=== PATIENT | female | born 1965 | race African-American/Black ===

== ENCOUNTER 2016-09-11 12:35 | Emergency (ER) | payer MEDICAID, OTHER ==
[~2016-09-11] VITALS: Ht 175.3 cm; Wt 88.9 kg
[~2016-09-11 12:35] MED LIST: ACETAMINOPHEN-1 EAC1 ORAL; ADULT WAL-100 MG/5 M ORAL; ALBUTEROL SULF8.5 GM INH; BACTRIM DS TAB1 EAC1 ORAL; BENTYL10 MG ORAL; CIPRO500 MG PO; HYDROCODON-ACE1 EA15 ORAL; IBUPROFEN600 MG ORAL; IBUPROFEN800 MG ORAL; MACROBID100 MG ORAL; METHADONE HCL10 MG PO; METRONIDAZOLE500 MG ORAL; NKM; NORCO 5-325 TA1 EACH ORAL; NORCO 5-325 TA1 EACH PO; PHENAZOPYRIDIN100 MG ORAL; PREDNISONE20 MG ORAL; ROBAXIN-750750 MG PO; SOMA250 MG PO; SOMA350 MG PO; TRAMADOL HCL50 MG ORAL
[2016-09-11] MEDS ORDERED: NKM (12:47)
[2016-09-11 13:26] LABS: APPEARANCE,URINE CLEAR; KETONES,URINE NEGATIVE (NEGATIVE); LEUKOCYTE ESTERASE ,URINE 1+ (NEGATIVE); NITRITE,URINE NEGATIVE (NEGATIVE); PH,URINE 8 (4.5-8.0); PROTEIN,URINE NEGATIVE (NEGATIVE); UROBILINOGEN,URINE NORMAL MG/DL (0.0-1.0)
[2016-09-11] MEDS ORDERED: Acetaminophen 500mg (ES) tab ORAL ONE (13:45)
[2016-09-11 14:07] LABS: BACTERIA,URINE FEW /HPF; SQUAMOUS EPITHELIAL CELL,UR FEW /LPF (NONE/OCC)
--- NOTE | 2016-09-11 14:08 | Emergency Room Report ---
History of Present Illness General Chief Complaint: General Complaint Present Illness HPI 51-year-old female sent to emergency Department complaining of frequency of urination, dysuria and bilateral flank pain exacerbated upon coughing. Denies hematuria, nausea, vomiting, fevers or chills. Patient also reports intermittent dry cough, denies productive sputum. She denies history of asthma or COPD. Patient states she does recent history of bronchitis. Pt states hx of CHF. denies dyspnea, SOB, or cough worse when lying down. Denies CP, Palpitations, LOC, AMS, dizziness, Changes in Vision, Sensation, paresthesias, or a sudden severe headache. Allergies: Coded Allergies: PENICILLINS (Verified Allergy, Severe, HIVES, 08/22/12) IBUPROFEN (Verified Allergy, Unknown, 08/24/16) TRAMADOL (Verified Allergy, Unknown, 08/24/16) Uncoded Allergies: PENICILLIN (Allergy, Unknown, 10/11/15) Patient History Past Medical History: see triage record Past Surgical History: none Pertinent Family History: none Now: No Reviewed Nursing Documentation: PMH: Agreed, PSxH: Agreed Nursing Documentation-PMH Hx Cardiac Problems: Yes - CHF, Tubal ligation, Hx Asthma: Yes Hx Cancer: No - UTERINE FIBROIDS Hx Gastrointestinal Problems: Yes - Cholecystecomy Hx Neurological Problems: Yes - Lock Jaw Review of Systems All Other Systems: negative except mentioned in HPI Physical Exam Vital Signs Date Time Temp Pulse Resp B/P Pulse Ox O2 Delivery O2 Flow Rate FiO2 09/11/16 12:44 97.5 80 20 129/79 99 Room Air Sp02 EP Interpretation: reviewed, normal General Appearance: no apparent distress, alert, GCS 15, non-toxic Head: normocephalic, atraumatic Eyes: bilateral eye PERRL, bilateral eye normal inspection ENT: hearing grossly normal, normal pharynx, no angioedema, normal voice, TMs + canals normal, uvula midline, moist mucus membranes Neck: full range of motion, no meningismus, no bony tend, supple/symm/no masses Respiratory: chest non-tender, lungs clear, normal breath sounds, no rhonchi, no respiratory distress, no retraction, no accessory muscle use, no wheezing, speaking full sentences Cardiovascular #1: regular rate, rhythm, no edema Gastrointestinal: normal bowel sounds, non tender, soft, no mass, no organomegaly, no guarding, no rebound Rectal: deferred Genitourinary: normal inspection, no CVA tenderness Musculoskeletal: back normal, gait/station normal, normal range of motion, non- tender, no calf tenderness Neurologic: alert, oriented x3, responsive, motor strength/tone normal, sensory intact, speech normal Psychiatric: judgement/insight normal, memory normal, mood/affect normal, no suicidal/homicidal ideation Skin: normal color, no rash, warm/dry, well hydrated Lymphatic: no adenopathy Medical Decision Making PA Attestation Dr. Johnson is my supervising Physician whom patient management has been discussed with. Diagnostic Impression: Primary Impression: Urinary tract infection Qualified Codes: N30.00 - Acute cystitis without hematuria ER Course Pt. presents to the ED c/o frequency x 2 days. , no fevers/ chills. Ddx considered but are not limited to UTi , Pyelo, STI, Stone, Cystitis Vital signs: are WNL, pt. is afebrile H&PE are most consistent with UTI ORDERS: - UA labs are attached : few bacteria, WBC's and leukocyte esterases indicating UTI ED INTERVENTIONS: - Tylenol PO DISCHARGE: At this time pt. is stable for d/c to home. Will provide printed patient care instructions, and any necessary prescriptions. Care plan and follow up instructions have been discussed with the patient prior to discharge. Labs Test 09/11/16 13:00 Urine Color Pale yellow Urine Appearance Clear Urine pH 8 (4.5-8.0) Urine Specific [place] 1.015 (1.005-1.035) Urine Protein Negative (NEGATIVE) Urine Glucose (UA) Negative (NEGATIVE) Urine Ketones Negative (NEGATIVE) Urine Occult Blood Negative (NEGATIVE) Urine Nitrite Negative (NEGATIVE) Urine Bilirubin Negative (NEGATIVE) Urine Urobilinogen Normal MG/DL (0.0-1.0) Urine Leukocyte Esterase 1+ (NEGATIVE) Urine RBC 2-4 /HPF (0 - 2) Urine WBC 5-10 /HPF (0 - 2) Urine Squamous Epithelial Cells Few /LPF (NONE/OCC) Urine Bacteria Few /HPF (NONE) Last Vital Signs Date Time Temp Pulse Resp B/P Pulse Ox O2 Delivery O2 Flow Rate FiO2 09/11/16 12:44 97.5 80 20 129/79 99 Room Air Disposition: HOME, SELF-CARE Condition: Stable Scripts Ranitidine Hcl* (ZANTAC*) 150 Mg Tablet 150 MG ORAL TWICE A DAY for 30 Days, #60 TAB Prov: Joana Luke 09/11/16 Meloxicam* (MELOXICAM*) 7.5 Mg Tablet 7.5 MG PO DAILY for 7 Days, #7 TAB Prov: Joana Luke 09/11/16 Nitrofurantoin Monohyd/M-Cryst* (MACROBID 100 MG*) 100 Mg Capsule 100 MG ORAL EVERY 12 HOURS for 7 Days, #14 CAP Prov: Joana Luke 09/11/16 Referrals: [facility],REFERRING (PCP) Patient Instructions: Urinary Tract Infection, [id number] Additional Instructions: Take medications as directed. Follow up with PCP in 3-5 days Return sooner to ED if new symptoms occur, or current symptoms become worse. Joana Luke Sep 11, 2016 14:08
[2016-09-11] MEDS ORDERED: ZANTAC150 MG ORAL (14:14)
[2016-09-11] MEDS ORDERED: NITROFURANTOIN100 M2 ORAL (14:14)
[2016-09-11] MEDS ORDERED: MELOXICAM7.5 MG PO (14:14)
[2016-09-11 14:35] VITALS: BP 108/65
== END 2016-09-11 14:37 | disposition home or self-care (01) ==
LOC: EMR 13:40
DX: N39.0 Urinary tract infection, site not specified (principal); J45.909 Unspecified asthma, uncomplicated; I50.9 Heart failure, unspecified
CPT/HCPCS: 81003; 99284

== ENCOUNTER → 2016-12-30 | Emergency (ER) | payer MEDICAID, OTHER ==
[~2016-12-30] VITALS: Ht 175.3 cm; Wt 90.7 kg
[~2016-12-30] MED LIST changes: +Ketorolac 30mg Inj IV ONE; +MELOXICAM7.5 MG PO; +NITROFURANTOIN100 M2 ORAL; +TYLENOL EXTRA500 MG ORAL; +ZANTAC150 MG ORAL
[2016-12-30 18:30] VITALS: BP 134/88
--- NOTE | 2016-12-30 18:34 | Emergency Room Report ---
History of Present Illness General Chief Complaint: Dizziness Source: Patient Present Illness HPI 51-year-old female presents emergency department complaining of dizziness, fatigue, and lightheadedness with getting up too fast. pt. reports that she has had heavy vaginal bleeding x 6 days, after having her period 1 week ago. pt. reports hx of fibroids. pt. states bleeding subsided yesterday, however today she has noticed intermittent dizziness. pt. describes feeling off-balance when arising too quickly. pt. denies feeling as thought the room is spinning. pt. denies nausea or vomiting. pt. denies recent head injury, WILSON, syncope, or palpitations. pt. reports that she has also been having right sided low back pain 6/10 in severity, that is exacerbated with certain movements, and is aching in nature and sometimes causes tingling sensation in the right leg. pt. denies dysuria, hematuria, frequency or urgency. pt. denies taking medication for her symptoms. Pt. also reports dry mouth. Denies CP, Palpitations, LOC, AMS , dizziness, Changes in Vision, Sensation, paresthesias, or a sudden severe headache. Allergies: Coded Allergies: PENICILLINS (Verified Allergy, Severe, HIVES, 08/22/12) IBUPROFEN (Verified Allergy, Unknown, 08/24/16) TRAMADOL (Verified Allergy, Unknown, 08/24/16) Uncoded Allergies: PENICILLIN (Allergy, Unknown, 10/11/15) Patient History Past Medical History: see triage record Past Surgical History: none Pertinent Family History: none Now: No Immunizations: UTD Reviewed Nursing Documentation: PMH: Agreed, PSxH: Agreed Nursing Documentation-PMH Past Medical History: No History, Except For Hx Cardiac Problems: Yes - CHF, Tubal ligation, Hx Asthma: Yes Hx Cancer: No - UTERINE FIBROIDS Hx Gastrointestinal Problems: Yes - Cholecystecomy Hx Neurological Problems: Yes - Lock Jaw Review of Systems All Other Systems: negative except mentioned in HPI Physical Exam Vital Signs Date Time Temp Pulse Resp B/P Pulse Ox O2 Delivery O2 Flow Rate FiO2 12/30/16 18:14 97.7 69 16 134/88 97 Room Air Sp02 EP Interpretation: reviewed, normal General Appearance: no apparent distress, alert, GCS 15, non-toxic Head: normocephalic, atraumatic Eyes: bilateral eye PERRL, bilateral eye normal inspection ENT: hearing grossly normal, normal pharynx, no angioedema, normal voice Neck: full range of motion, supple/symm/no masses Respiratory: lungs clear, normal breath sounds, speaking full sentences Cardiovascular #1: regular rate, rhythm, no edema Gastrointestinal: normal bowel sounds, non tender, soft, no guarding, no rebound Rectal: deferred Genitourinary: normal inspection, no CVA tenderness Musculoskeletal: back normal, gait/station normal, normal range of motion, no calf tenderness, tender - right paraspinal ttp, negative CVA tenderness, no midline ttp. forward flexion and sitting at 90* angle exacerbated pain into the posterior right leg. Neurologic: alert, oriented x3, responsive, motor strength/tone normal, sensory intact, cerebellar normal, normal gait, speech normal, no pronator Psychiatric: judgement/insight normal, memory normal, mood/affect normal, no suicidal/homicidal ideation Skin: normal color, no rash, warm/dry, well hydrated Medical Decision Making PA Attestation Dr. Walsh is my supervising Physician whom patient management has been discussed with. Diagnostic Impression: Primary Impression: Fibroid Qualified Codes: D25.9 - Leiomyoma of uterus, unspecified Additional Impressions: Dizziness Sciatica of right side ER Course Ddx considered but are not limited to Anemia, BPPV, hypovolemia, cardiac cause. Vital signs: are WNL, pt. is afebrile H&PE are most consistent with : fatigue, and intermittent dizziness following 6 days of heavy vaginal bleeding. will r/o anemia and check hydration status, cardiac pathology is of low suspicion as pt. has more plausible alternative dx, does not have cardiac RF's, and does not complain of cardiac symptoms or palpitations. HPI is not consistent with vertigo. ORDERS: -CBC: unremarkable no evidence of anemia -CMP: WNL, electrolytes ok -Orthostatic VS: negative for orthostatic hypotension ED INTERVENTIONS: -500cc NS -30mg Toradol IV for pain. DISCHARGE: At this time pt. is stable for d/c to home. Will provide printed patient care instructions, and any necessary prescriptions. Care plan and follow up instructions have been discussed with the patient prior to discharge. Labs Test 12/30/16 18:35 White Blood Count 6.0 K/UL (4.8-10.8) Red Blood Count 4.09 M/UL (4.20-5.40) Hemoglobin 13.3 G/DL (12.0-16.0) Hematocrit 37.8 % (37.0-47.0) Mean Corpuscular Volume 92 FL (80-99) Mean Corpuscular Hemoglobin 32.4 PG (27.0-31.0) Mean Corpuscular Hemoglobin Concent 35.1 G/DL (32.0-36.0) Red Cell Distribution Width 12.4 % (11.6-14.8) Platelet Count 153 K/UL (150-450) Mean Platelet Volume 7.7 FL (6.5-10.1) Neutrophils (%) (Auto) 62.4 % (45.0-75.0) Lymphocytes (%) (Auto) 27.7 % (20.0-45.0) Monocytes (%) (Auto) 6.1 % (1.0-10.0) Eosinophils (%) (Auto) 3.3 % (0.0-3.0) Basophils (%) (Auto) 0.5 % (0.0-2.0) Sodium Level 144 mEQ/L (135-145) Potassium Level 4.0 mEQ/L (3.4-4.9) Chloride Level 107 mEQ/L (98-107) Carbon Dioxide Level 29 mEQ/L (20-30) Anion Gap 8 (5-15) Blood Urea Nitrogen 14 mg/dL (7-23) Creatinine 0.8 mg/dL (0.5-0.9) Estimat Glomerular Filtration Rate > 60 mL/min (>60) Glucose Level 82 mg/dL (74-106) Calcium Level 8.7 mg/dL (8.6-10.2) Last Vital Signs Date Time Temp Pulse Resp B/P Pulse Ox O2 Delivery O2 Flow Rate FiO2 12/30/16 18:30 97.7 16 134/88 97 Room Air 12/30/16 18:14 69 Disposition: HOME, SELF-CARE Condition: Stable Scripts Acetaminophen* (TYLENOL EXTRA STRENGTH*) 500 Mg Tablet 500 MG ORAL Q6H, #20 TAB 0 Refills Prov: Joana Luke 12/30/16 Patient Instructions: Dizziness, Sciatica, [id number], Uterine Fibroids Additional Instructions: Take medications as directed. Follow up with PCP and OBGYN in 3-5 days Return sooner to ED if new symptoms occur, or current symptoms become worse. - Please note that this Emergency Department Report was dictated using [employer] developer mid level technology software, occasionally this can lead to erroneous entry secondary to interpretation by the dictation equipment. Joana Luke Dec 30, 2016 18:34
[2016-12-30 18:44] VITALS: BP_SYST 122; BP_SYST 128; BP_SYST 138; BP_DIAS 75; BP_DIAS 77; BP_DIAS 78
[2016-12-30 18:57] LABS: BASOPHILS % (AUTO) 0.5 % (0.0-2.0); EOSINOPHILS % (AUTO) 3.3 % (0.0-3.0); LYMPHOCYTES % (AUTO) 27.7 % (20.0-45.0); MEAN CORPUSCULAR HEMOGLOBIN 32.4 PG (27.0-31.0); MEAN CORPUSCULAR HGB CONC 35.1 G/DL (32.0-36.0); MEAN CORPUSCULAR VOLUME 92 FL (80-99); MEAN PLATELET VOLUME 7.7 FL (6.5-10.1); MONOCYTES % (AUTO) 6.1 % (1.0-10.0); NEUTROPHILS % (AUTO) 62.4 % (45.0-75.0); PLATELET COUNT 153 K/UL (150-450); RED BLOOD COUNT 4.09 M/UL (4.20-5.40); RED CELL DISTRIBUTION WIDTH 12.4 % (11.6-14.8)
[2016-12-30 19:18] LABS: ANION GAP 8 (5-15); CALCIUM 8.7 mg/dL (8.6-10.2); CARBON DIOXIDE 29 mEQ/L (20-30); CHLORIDE 107 mEQ/L (98-107); CREATININE 0.8 mg/dL (0.5-0.9); GLOMERULAR FILTRATION RATE > 60 mL/min (>60); HEMOLYSIS 4; SODIUM 144 mEQ/L (135-145)
[2016-12-30 19:39] VITALS: BP 126/72
[2016-12-30 19:40] VITALS: BP 128/78
== END | disposition home or self-care (01) ==
LOC: EMR 18:33
DX: D25.9 Leiomyoma of uterus, unspecified (principal); R42 Dizziness and giddiness; M54.31 Sciatica, right side; I50.9 Heart failure, unspecified; J45.909 Unspecified asthma, uncomplicated; Z88.0 Allergy status to penicillin; Z88.6 Allergy status to analgesic agent
CPT/HCPCS: 36415; 80048; 85025; 96360; 96374; 99284; J1885

== ENCOUNTER 2017-03-16 10:05 | Emergency (ER) | payer SELFPAY ==
[~2017-03-16] VITALS: Ht 172.7 cm; Wt 86.2 kg
[~2017-03-16 10:05] MED LIST changes: -Ketorolac 30mg Inj IV ONE
[2017-03-16 10:48] LABS: APPEARANCE,URINE CLEAR; BASOPHILS % (AUTO) 0.7 % (0.0-2.0); EOSINOPHILS % (AUTO) 1.9 % (0.0-3.0); KETONES,URINE NEGATIVE (NEGATIVE); LEUKOCYTE ESTERASE ,URINE 2+ (NEGATIVE); LYMPHOCYTES % (AUTO) 22.9 % (20.0-45.0); MEAN CORPUSCULAR HEMOGLOBIN 30.9 PG (27.0-31.0); MEAN CORPUSCULAR HGB CONC 32.9 G/DL (32.0-36.0); MEAN CORPUSCULAR VOLUME 94 FL (80-99); MEAN PLATELET VOLUME 8.9 FL (6.5-10.1); MONOCYTES % (AUTO) 5.9 % (1.0-10.0); NEUTROPHILS % (AUTO) 68.6 % (45.0-75.0); NITRITE,URINE NEGATIVE (NEGATIVE); PH,URINE 6.5 (4.5-8.0); PLATELET COUNT 183 K/UL (150-450); PROTEIN,URINE NEGATIVE (NEGATIVE); RED BLOOD COUNT 4.41 M/UL (4.20-5.40); UROBILINOGEN,URINE 1 MG/DL (0.0-1.0); WHITE BLOOD COUNT 6.3 K/UL (4.8-10.8)
[2017-03-16 10:58] LABS: BACTERIA,URINE FEW /HPF; MUCUS,URINE FEW /LPF (NONE/OCC); SQUAMOUS EPITHELIAL CELL,UR FEW /LPF (NONE/OCC); WBC,URINE 15-20 /HPF (0 - 2)
[2017-03-16 11:02] LABS: ALANINE AMINOTRANSFERASE 9 U/L (3-33); ALBUMIN/GLOBULIN RATIO 0.9 (1.0-2.7); ANION GAP 16 (5-15); ASPARTATE AMINO TRANSFERASE 11 U/L (5-40); CALCIUM 9.3 mg/dL (8.6-10.2); CARBON DIOXIDE 20 mEQ/L (20-30); CHLORIDE 104 mEQ/L (98-107); CREATININE 0.6 mg/dL (0.5-0.9); GLOMERULAR FILTRATION RATE > 60 mL/min (>60); HEMOLYSIS 4; LIPASE 20 U/L (< 60); POTASSIUM 3.8 mEQ/L (3.4-4.9); SODIUM 140 mEQ/L (135-145); TOTAL PROTEIN 7.3 g/dL (6.6-8.7)
[2017-03-16] MEDS ORDERED: Morphine Sulfate 4mg/ml Inj ONE (11:11)
[2017-03-16] MEDS ORDERED: Morphine Sulfate 4mg/ml Inj IVP ONE ×2 (11:15→12:15)
[2017-03-16 12:48] VITALS: BP 132/73
[2017-03-16] MEDS ORDERED: NORCO 5-325 TA1 EACH ORAL (13:18)
[2017-03-16] MEDS ORDERED: NITROFURANTOIN100 M2 ORAL (13:18)
[2017-03-16 13:28] VITALS: BP 132/73
--- NOTE | 2017-03-16 14:12 | Emergency Room Report ---
History of Present Illness General Chief Complaint: Abdominal Pain Source: Patient Present Illness HPI 51-year-old female presents to ED for evaluation. Patient states she's having lower abdominal pain for the last 2 days. Sharp. 8/. Nonradiating. Notes dysuria. Denies fevers or chills. Denies vaginal discharge or bleeding. Denies nausea or vomiting. No aggravating relieving factors. Denies any other associated symptom Allergies: Coded Allergies: PENICILLINS (Verified Allergy, Severe, HIVES, 08/22/12) IBUPROFEN (Verified Allergy, Unknown, 08/24/16) TRAMADOL (Verified Allergy, Unknown, 08/24/16) Uncoded Allergies: PENICILLIN (Allergy, Unknown, 10/11/15) Patient History Past Medical History: asthma Past Surgical History: nena, other - tubal ligation Pertinent Family History: none Social History: Denies: alcohol use, drug use, smoking Last Menstrual Period: 2 1/2 weeks Now: No Immunizations: UTD Reviewed Nursing Documentation: PMH: Agreed, PSxH: Agreed Nursing Documentation-PMH Hx Cardiac Problems: Yes - CHF, States during 12 years ago. Tubal ligation, Hx Asthma: Yes Hx Cancer: No - UTERINE FIBROIDS Hx Gastrointestinal Problems: Yes - Cholecystecomy Hx Neurological Problems: Yes - Lock Jaw Review of Systems All Other Systems: negative except mentioned in HPI Physical Exam Vital Signs Date Time Temp Pulse Resp B/P Pulse Ox O2 Delivery O2 Flow Rate FiO2 03/16/17 10:08 97.2 76 18 116/79 97 Room Air Sp02 EP Interpretation: reviewed, normal General Appearance: no apparent distress, alert, GCS 15, non-toxic Head: normocephalic, atraumatic Eyes: bilateral eye PERRL, bilateral eye normal inspection ENT: hearing grossly normal, normal pharynx, no angioedema, normal voice Neck: full range of motion, supple/symm/no masses Respiratory: chest non-tender, lungs clear, normal breath sounds, speaking full sentences Cardiovascular #1: regular rate, rhythm, no edema Cardiovascular #2: 2+ carotid (R), 2+ carotid (L), 2+ radial (R), 2+ radial (L) , 2+ dorsalis pedis (R), 2+ dorsalis pedis (L) Gastrointestinal: normal bowel sounds, soft, non-distended, no guarding, no rebound, tenderness - supraupubic Rectal: deferred Genitourinary: normal inspection, no CVA tenderness Musculoskeletal: back normal, gait/station normal, normal range of motion, non- tender Neurologic: alert, oriented x3, responsive, motor strength/tone normal, sensory intact, speech normal Psychiatric: judgement/insight normal, memory normal, mood/affect normal, no suicidal/homicidal ideation Reflexes: 3+ bicep (R), 3+ bicep (L), 3+ tricep (R), 3+ tricep (L), 3+ knee (R) , 3+ knee (L) Skin: normal color, no rash, warm/dry, well hydrated Lymphatic: no adenopathy Medical Decision Making Diagnostic Impression: Primary Impression: Urinary tract infection Qualified Codes: N39.0 - Urinary tract infection, site not specified Additional Impression: Abdominal pain Qualified Codes: R10.9 - Unspecified abdominal pain ER Course Hospital Course 51-year-old F presents to ED with dysuria, lower abdominal pain Differential diagnosis includes-appendicitis, cholecystitis, small bowel obstruction, gastritis, Clinical course Patient placed on stretcher. After initial history and physical I ordered labs , IV fluids, pain medications and CT scan Labs - no leukocytosis, electrolytes ok, LFTs normal, UA + bacteria CT scan shows no acute pathology Upon reassessment, patient states pain has improved. Given improvement in symptoms and lack of acute findings, I believe patient can be safely discharged to home. Patient agrees with plan I feel this is a highly complex case requiring extensive working including EKG/ Rhythm strip, Xray/CT/US, Blood/urine lab work, repeat exams while in ED, and administration of strong opiates/narcotics for pain control, admission to hospital or close patient follow up. Diagnosis - abdominal pain, UTI Stable and discharged to home with Rx Kathryn, Macrobid. Followup with PMD. Return to ED if symptoms recur or worsen Labs Test 03/16/17 10:31 White Blood Count 6.3 K/UL (4.8-10.8) Red Blood Count 4.41 M/UL (4.20-5.40) Hemoglobin 13.6 G/DL (12.0-16.0) Hematocrit 41.4 % (37.0-47.0) Mean Corpuscular Volume 94 FL (80-99) Mean Corpuscular Hemoglobin 30.9 PG (27.0-31.0) Mean Corpuscular Hemoglobin Concent 32.9 G/DL (32.0-36.0) Red Cell Distribution Width 12.0 % (11.6-14.8) Platelet Count 183 K/UL (150-450) Mean Platelet Volume 8.9 FL (6.5-10.1) Neutrophils (%) (Auto) 68.6 % (45.0-75.0) Lymphocytes (%) (Auto) 22.9 % (20.0-45.0) Monocytes (%) (Auto) 5.9 % (1.0-10.0) Eosinophils (%) (Auto) 1.9 % (0.0-3.0) Basophils (%) (Auto) 0.7 % (0.0-2.0) Urine Color Pale yellow Urine Appearance Clear Urine pH 6.5 (4.5-8.0) Urine Specific [place] 1.015 (1.005-1.035) Urine Protein Negative (NEGATIVE) Urine Glucose (UA) Negative (NEGATIVE) Urine Ketones Negative (NEGATIVE) Urine Occult Blood 1+ (NEGATIVE) Urine Nitrite Negative (NEGATIVE) Urine Bilirubin Negative (NEGATIVE) Urine Urobilinogen 1 MG/DL (0.0-1.0) Urine Leukocyte Esterase 2+ (NEGATIVE) Urine RBC 2-4 /HPF (0 - 2) Urine WBC 15-20 /HPF (0 - 2) Urine Squamous Epithelial Cells Few /LPF (NONE/OCC) Urine Bacteria Few /HPF (NONE) Urine Mucus Few /LPF (NONE/OCC) Urine HCG, Qualitative Negative Sodium Level 140 mEQ/L (135-145) Potassium Level 3.8 mEQ/L (3.4-4.9) Chloride Level 104 mEQ/L (98-107) Carbon Dioxide Level 20 mEQ/L (20-30) Anion Gap 16 (5-15) Blood Urea Nitrogen 16 mg/dL (7-23) Creatinine 0.6 mg/dL (0.5-0.9) Estimat Glomerular Filtration Rate > 60 mL/min (>60) Glucose Level 102 mg/dL (74-106) Calcium Level 9.3 mg/dL (8.6-10.2) Total Bilirubin < 0.2 mg/dL (0.0-1.2) Aspartate Amino Transf (AST/SGOT) 11 U/L (5-40) Alanine Aminotransferase (ALT/SGPT) 9 U/L (3-33) Alkaline Phosphatase 52 U/L (35-104) Total Protein 7.3 g/dL (6.6-8.7) Albumin 3.6 g/dL (3.5-5.2) Globulin 3.7 g/dL Albumin/Globulin Ratio 0.9 (1.0-2.7) Lipase 20 U/L (< 60) (1) Urinary tract infection CT/MRI/US Diagnostic Results CT/MRI/US Diagnostic Results : Imaging Test Ordered: CT A/P Impression Status post cholecystectomy. Right adnexal ovarian cyst. Last Vital Signs Date Time Temp Pulse Resp B/P Pulse Ox O2 Delivery O2 Flow Rate FiO2 03/16/17 13:28 97.3 70 16 132/73 97 Room Air Status: improved Disposition: HOME, SELF-CARE Condition: Stable Scripts Nitrofurantoin Monohyd/M-Cryst* (MACROBID 100 MG*) 100 Mg Capsule 100 MG ORAL EVERY 12 HOURS for 7 Days, CAP Prov: ANGELA HOLLEY M.D. 03/16/17 Hydrocodone Bit/Acetaminophen 5-325* (NORCO 5-325*) 1 Each Tablet 1 TAB ORAL Q6H Y for For Pain, #10 TAB 0 Refills Prov: ANGELA HOLLEY M.D. 03/16/17 Referrals: NOT CHOSEN N[facility]/,REFERRING (PCP) Patient Instructions: Dysuria ANGELA HOLLEY M.D. Mar 16, 2017 14:12
--- NOTE | 2017-03-17 10:30 | Diagnostic Imaging Report ---
Clinical Indication: Lower abdominal pain Technique: No oral contrast utilized, per emergency room physician request IV administration nonionic contrast. Venous phase spiral acquisition obtained through the abdomen and pelvis. Multiplanar reconstructions were generated. Total dose length product 985 mGycm. CTDIvol(s) 17 mGy. Dose reduction achieved using automated exposure control Comparison: 10/11/2015 Findings: The appendix is normal. There are a few colonic diverticula. No small bowel distention. No free or loculated intraperitoneal air or fluid is evident. The distal esophagus, stomach, duodenum are unremarkable. The gallbladder is surgically absent. There is ectasia of the extrahepatic and central intrahepatic bile ducts. There is questionably area of high attenuation in the downstream common bile duct, and a calculus is not excludable. The liver demonstrates multiple subcentimeter low-attenuation lesions which are too small to characterize, most likely benign simple cysts. No pancreatic mass. The spleen, adrenals are unremarkable. Dense material within the renal collecting systems and left proximal ureter presumably represents excreted contrast, although calculi are not completely excluded. Again demonstrated is a cyst in the right ovary, currently measuring 2.6 cm long axis dimension, probably not significantly changed from prior exam. Bilateral vaginal wall cysts are again demonstrated. The included lung bases are clear. The bones are unremarkable. Impression: Status post cholecystectomy. Mild ectasia of the extrahepatic and central intrahepatic bile ducts, slightly increased from 2 07/05/2016, may related to postcholecystectomy state, the downstream obstruction calculus not excludable. Correlate with liver function tests, is or MRCP if clinically indicated Colonic diverticulosis 2.6 cm right ovarian cyst, presumably a benign functional cyst, unchanged. Subcentimeter low-attenuation lesions, too small to characterize, most likely benign simple cysts or bile hamartomas. No further followup necessary. Other findings as noted, including bilateral vaginal wall cysts This agrees with the preliminary interpretation provided overnight by Dr. Russell The CT scanner at [facility] is accredited by the [employer] and the scans are performed using protocols designed to limit radiation exposure to as low as reasonably achievable to attain images of sufficient resolution adequate for diagnostic evaluation.
== END 2017-03-16 13:30 | disposition home or self-care (01) ==
LOC: EMR 10:40
DX: R10.9 Unspecified abdominal pain (principal); N39.0 Urinary tract infection, site not specified; Z90.49 Acquired absence of other specified parts of digestive tract; J45.909 Unspecified asthma, uncomplicated; Z98.51 Tubal ligation status; Z88.0 Allergy status to penicillin; Z88.6 Allergy status to analgesic agent
CPT/HCPCS: 36415; 74177; 80053; 81003; 81025; 83690; 85025; 87086; 96360; 96374; 96375; 99284; J2270; J7040; Q9967

== ENCOUNTER 2017-04-05 08:23 | Emergency (ER) | payer SELFPAY ==
[~2017-04-05] VITALS: Ht 172.7 cm; Wt 86.2 kg
[2017-04-05] MEDS ORDERED: Tylenol #3 tab (300mg/30mg) ORAL ONE (09:00)
[2017-04-05 09:37] VITALS: BP 115/75
--- NOTE | 2017-04-05 09:41 | Emergency Room Report ---
History of Present Illness General Chief Complaint: Vaginal Source: Patient Present Illness HPI 51-year-old female presents ED evaluation. Patient states the last few days she 's been having suprapubic pain dysuria. Believes she has a bladder infection. She was here last time with similar presentation. Pain is an 8/10, sharp, worse with urination. Denies any fevers or chills. Denies vaginal bleeding or discharge. Denies any flank pain. Patient is also complaining of pain to her left ankle and foot. States that she hit the bed railing this morning. Pain is an 8/10, throbbing, nonradiating. Patient notes pain but is able to walk. Denies any other injuries. No other aggravating or relieving factors. Denies any other associated symptoms Allergies: Coded Allergies: PENICILLINS (Verified Allergy, Severe, HIVES, 08/22/12) IBUPROFEN (Verified Allergy, Unknown, 08/24/16) TRAMADOL (Verified Allergy, Unknown, 08/24/16) Uncoded Allergies: PENICILLIN (Allergy, Unknown, 10/11/15) Patient History Past Medical History: asthma Past Surgical History: nena Pertinent Family History: none Social History: Denies: alcohol use, drug use, smoking Last Menstrual Period: 3 weeks Now: No Immunizations: UTD Reviewed Nursing Documentation: PMH: Agreed, PSxH: Agreed Nursing Documentation-PMH Past Medical History: No History, Except For Hx Cardiac Problems: Yes - CHF, States during 12 years ago. Tubal ligation, Hx Asthma: Yes Hx Cancer: No - UTERINE FIBROIDS Hx Gastrointestinal Problems: Yes - Cholecystecomy Hx Neurological Problems: Yes - Lock Jaw Review of Systems All Other Systems: negative except mentioned in HPI Physical Exam Vital Signs Date Time Temp Pulse Resp B/P Pulse Ox O2 Delivery O2 Flow Rate FiO2 04/05/17 08:33 97.3 75 18 115/75 98 Room Air Sp02 EP Interpretation: reviewed, normal General Appearance: no apparent distress, alert, GCS 15, non-toxic Head: normocephalic Eyes: bilateral eye PERRL, bilateral eye normal inspection ENT: normal ENT inspection Neck: normal inspection Respiratory: normal inspection Cardiovascular #1: normal inspection Gastrointestinal: normal bowel sounds, soft, non-distended, no guarding, no rebound, tenderness - suprapubic Rectal: deferred Genitourinary: no CVA tenderness, os closed, other - cervical discharge noted. + CMT. ese teacher present Musculoskeletal: tender - L ankle Neurologic: alert, oriented x3, responsive, motor strength/tone normal, sensory intact, speech normal Psychiatric: judgement/insight normal, memory normal, mood/affect normal, no suicidal/homicidal ideation Skin: normal inspection Lymphatic: normal inspection Medical Decision Making Diagnostic Impression: Primary Impression: Contusion of leg Qualified Codes: S80.12XA - Contusion of left lower leg, initial encounter Additional Impression: Cervicitis ER Course 51-year-old female presents ED c/o vaginal irritation, also c/o left leg pain s/ p hitting bed Differential - contusion, fx, UTI patient placed on stretcher. after intiial history and physical I ordered UA, xrays of leg. xrays of L ankle and L foot unremarkable for acute fx ua unremarkable pelvic exam performed, ese teacher present. there is some CMT Noted. some white discharge noted given rocephin/azithromycin noted diagnosis - contusion of leg, cervicitis stable and discharged to home with Rx Tylenol #3. apply ice, keep elevated. f/ u with PMD. return to ED if symptoms recur/worsen. Labs Test 04/05/17 08:40 Urine Color Pale yellow Urine Appearance Clear Urine pH 7 (4.5-8.0) Urine Specific [place] 1.010 (1.005-1.035) Urine Protein 1+ (NEGATIVE) Urine Glucose (UA) Negative (NEGATIVE) Urine Ketones Negative (NEGATIVE) Urine Occult Blood 2+ (NEGATIVE) Urine Nitrite Negative (NEGATIVE) Urine Bilirubin Negative (NEGATIVE) Urine Urobilinogen Normal MG/DL (0.0-1.0) Urine Leukocyte Esterase 3+ (NEGATIVE) Urine RBC 5-10 /HPF (0 - 2) Urine WBC 5-10 /HPF (0 - 2) Urine Squamous Epithelial Cells Few /LPF (NONE/OCC) Urine Bacteria None /HPF (NONE) Other X-Ray Diagnostic Results Other X-Ray Diagnostic Results #1: X-Ray ordered: L ankle # of Views/Limited Vs Complete: 3 View Indication: Pain EP Interpretation: Yes Interpretation: no dislocation, no soft tissue swelling, no fractures Impression: No acute disease Interpreting ER Provider: Electronically signed by Bin Gonzales MD Other X-Ray Diagnostic Results #2: X-Ray ordered: L foot # of Views/Limited Vs Complete: 3 View Indication: Pain EP Interpretation: Yes Interpretation: no dislocation, no soft tissue swelling, no fractures Impression: No acute disease Interpreting ER Provider: Electronically signed by Bin Gonzales MD Last Vital Signs Date Time Temp Pulse Resp B/P Pulse Ox O2 Delivery O2 Flow Rate FiO2 04/05/17 08:33 97.3 75 18 115/75 98 Room Air Status: improved Disposition: HOME, SELF-CARE Condition: Stable Scripts Acetaminophen With Codeine (T#3) (TYLENOL #3 TAB*) Y Tab 1 TAB ORAL Q8H Y for For Pain, #20 TAB Prov: BIN GONZALES M.D. 04/05/17 Referrals: NOT CHOSEN [facility]/,REFERRING (PCP) BIN GONZALES M.D. Apr 05, 2017 09:41
[2017-04-05 10:00] LABS: APPEARANCE,URINE CLEAR; KETONES,URINE NEGATIVE (NEGATIVE); LEUKOCYTE ESTERASE ,URINE 3+ (NEGATIVE); NITRITE,URINE NEGATIVE (NEGATIVE); PH,URINE 7 (4.5-8.0); PROTEIN,URINE 1+ (NEGATIVE); UROBILINOGEN,URINE NORMAL MG/DL (0.0-1.0)
[2017-04-05 10:06] LABS: SQUAMOUS EPITHELIAL CELL,UR FEW /LPF (NONE/OCC)
--- NOTE | 2017-04-05 10:34 | Diagnostic Imaging Report ---
Indication: PAIN Technique: 3 views left foot Comparison: None Findings: No acute fractures. No dislocations. Joint spaces are preserved. There is slight hammertoe deformity of the fourth and fifth digits Impression: Negative
--- NOTE | 2017-04-05 10:35 | Diagnostic Imaging Report ---
Indication: PAIN Technique: 3 views of the left ankle Comparison: none Findings: No acute fractures. No dislocations. Joint spaces are preserved. Impression: Negative
[2017-04-05] MEDS ORDERED: ACETAMINOPHEN-1 EAC1 ORAL (10:56)
[2017-04-05] MEDS ORDERED: Azithromycin 250mg tab ORAL ONE (11:00)
[2017-04-05] MEDS ORDERED: Lidocaine 1% MPF 10mg/ml 5ml ONE (11:02)
[2017-04-05 11:28] VITALS: BP 115/75
[2017-04-05 18:26] VITALS: BP 115/75
== END 2017-04-05 15:11 | disposition home or self-care (01) ==
LOC: EMR 08:52
DX: N72 Inflammatory disease of cervix uteri (principal); S80.12XA Contusion of left lower leg, initial encounter; Z98.51 Tubal ligation status; J45.909 Unspecified asthma, uncomplicated; Z90.49 Acquired absence of other specified parts of digestive tract; Z88.0 Allergy status to penicillin; Z88.6 Allergy status to analgesic agent; W22.03XA Walked into furniture, initial encounter; Y92.003 Bedroom of unspecified non-institutional (private) residence as the place of occurrence of the external cause
CPT/HCPCS: 73610; 73630; 81003; 96372; 99283; J0696

== ENCOUNTER 2017-04-20 09:39 | Emergency (ER) | payer MEDICAID ==
[~2017-04-20] VITALS: Ht 172.7 cm; Wt 87.5 kg
[2017-04-20 10:06] VITALS: BP 118/72
[2017-04-20] MEDS ORDERED: DOXYCYCLINE MO100 MG ORAL (10:30)
[2017-04-20 10:43] VITALS: BP 118/72
--- NOTE | 2017-04-20 13:41 | Emergency Room Report ---
History of Present Illness General Chief Complaint: Pelvic Pain Source: Patient Present Illness HPI 51-year-old female presents to ER for evaluation. Patient states that she went to another hospital recently and was diagnosed with PID. Was discharged with doxycycline and [place]. States that she lost her prescriptions. Patient states she had some cramping abdominal pain, 03/17, nonradiating. Denies any discharge. Denies any fevers or chills. Denies nausea or vomiting. No other aggravating or relieving factors. Denies any other associated symptoms Allergies: Coded Allergies: PENICILLINS (Verified Allergy, Severe, HIVES, 08/22/12) IBUPROFEN (Verified Allergy, Unknown, 08/24/16) TRAMADOL (Verified Allergy, Unknown, 08/24/16) Uncoded Allergies: PENICILLIN (Allergy, Unknown, 10/11/15) Patient History Past Medical History: asthma Past Surgical History: none, nena Pertinent Family History: none Social History: Denies: alcohol use, drug use, smoking Last Menstrual Period: 04/04/17 Now: No Immunizations: UTD Reviewed Nursing Documentation: PMH: Agreed, PSxH: Agreed Nursing Documentation-PMH Hx Cardiac Problems: Yes - CHF, States during 12 years ago. Tubal ligation, Hx Asthma: Yes Hx Cancer: No - UTERINE FIBROIDS Hx Gastrointestinal Problems: Yes - Cholecystecomy Hx Neurological Problems: Yes - Lock Jaw Review of Systems All Other Systems: negative except mentioned in HPI Physical Exam Vital Signs Date Time Temp Pulse Resp B/P Pulse Ox O2 Delivery O2 Flow Rate FiO2 04/20/17 09:48 73 16 116/75 100 Room Air 04/20/17 10:06 98.2 Sp02 EP Interpretation: reviewed, normal General Appearance: no apparent distress, alert, GCS 15, non-toxic Head: normocephalic, atraumatic Eyes: bilateral eye PERRL, bilateral eye normal inspection ENT: hearing grossly normal, normal pharynx, no angioedema, normal voice Neck: full range of motion, supple/symm/no masses Respiratory: chest non-tender, lungs clear, normal breath sounds, speaking full sentences Cardiovascular #1: regular rate, rhythm, no edema Cardiovascular #2: 2+ carotid (R), 2+ carotid (L), 2+ radial (R), 2+ radial (L) , 2+ dorsalis pedis (R), 2+ dorsalis pedis (L) Gastrointestinal: normal bowel sounds, non tender, soft, non-distended, no guarding, no rebound Rectal: deferred Genitourinary: normal inspection, no CVA tenderness Musculoskeletal: back normal, gait/station normal, normal range of motion, non- tender Neurologic: alert, oriented x3, responsive, motor strength/tone normal, sensory intact, speech normal Psychiatric: judgement/insight normal, memory normal, mood/affect normal, no suicidal/homicidal ideation Reflexes: 3+ bicep (R), 3+ bicep (L), 3+ tricep (R), 3+ tricep (L), 3+ knee (R) , 3+ knee (L) Skin: normal color, no rash, warm/dry, well hydrated Lymphatic: no adenopathy Medical Decision Making Diagnostic Impression: Primary Impression: Medication refill Additional Impression: Narcotic seeking behavior ER Course 51 yo F presents requesting refill of her medications - lost her Rx of Doxycycline and [place] hospital course: After initial history and physical, she provides discharge papers from [facility] which show prescription for [place] and doxycycline Patient has been here multiple times for pain-related complaints always requesting narcotic medications. Patient has multiple prescriptions seen on [facility]. I told patient I am uncomfortable providing her with medication at this time but I will refill her doxycycline Diagnosis-encounter for medication refill, narcotic seeking behavior Stable and discharged to home with prescription for doxycycline. Followup with PMD. Return to ED if symptoms recur or worsen Last Vital Signs Date Time Temp Pulse Resp B/P Pulse Ox O2 Delivery O2 Flow Rate FiO2 04/20/17 10:43 98.2 70 15 118/72 100 Room Air Status: improved Disposition: HOME, SELF-CARE Condition: Stable Scripts Doxycycline Monohydrate* (DOXYCYCLINE MONOHYDRATE*) 100 Mg Capsule 100 MG ORAL Q12H for 14 Days, CAP 0 Refills Prov: ANGELA HOLLEY M.D. 04/20/17 Patient Instructions: Pelvic Inflammatory Disease ANGELA HOLLEY M.D. Apr 20, 2017 13:41
== END 2017-04-20 10:44 | disposition home or self-care (01) ==
LOC: EMR 10:12
DX: Z76.0 Encounter for issue of repeat prescription (principal); R10.9 Unspecified abdominal pain; Z76.5 Malingerer [conscious simulation]; Z88.0 Allergy status to penicillin; Z88.6 Allergy status to analgesic agent; I50.9 Heart failure, unspecified; Z90.49 Acquired absence of other specified parts of digestive tract
CPT/HCPCS: 99283

== ENCOUNTER 2017-09-04 11:31 | Emergency (ER) | payer MEDICAID ==
[~2017-09-04] VITALS: Ht 175.3 cm; Wt 75.7 kg
[~2017-09-04 11:31] MED LIST changes: +CIPRO250 MG/51 PO; +DOXYCYCLINE MO100 MG ORAL
[2017-09-04] MEDS ORDERED: oxyCODONE HCL/Acetaminophen 5/325mg ORAL ONE (12:30)
[2017-09-04] MEDS ORDERED: Ketorolac 60mg Inj IM ONE (12:30)
--- NOTE | 2017-09-04 12:41 | Emergency Room Report ---
History of Present Illness General Chief Complaint: Pain Source: Patient, Medical Record Present Illness HPI 52-year-old female presents to the emergency department complaining of 10 out of 10 in severity bilateral ankle pain x3 days. Patient states that on the she was seen at [facility] ED and dx'd with bilateral ankle fractures and had bilateral posterior leg splint placed. Patient states that she believes the splints were place very poorly, and she has noticed significant swelling to the feet bilaterally and reports progressive numbness and tingling localized in both heels. denies skin color changes of the toes, or gross loss of sensation. She reports at the splints are very uncomfortable. She states that she is supposed follow up with desktop publishing specialist she's been unable to make an appointment so she came to the emergency department. She states that she was prescribed [place] 10mg which had not been doing anything. Patient denies change in character of her pain since onset of fractures she does report increase in swelling. Denies loss of gross motor movements of the extremities, incontinence of bowel or bladder. Allergies: Coded Allergies: PENICILLINS (Verified Allergy, Severe, HIVES, 08/22/12) IBUPROFEN (Verified Allergy, Unknown, 08/24/16) TRAMADOL (Verified Allergy, Unknown, 08/24/16) Uncoded Allergies: PENICILLIN (Allergy, Unknown, 10/11/15) Patient History Past Medical History: see triage record Past Surgical History: none Pertinent Family History: none Last Menstrual Period: 07/25/17 Now: No Reviewed Nursing Documentation: PMH: Agreed, PSxH: Agreed Nursing Documentation-PM Past Medical History: No History, Except For Hx Cardiac Problems: Yes - CHF, States during 12 years ago. Tubal ligation, Hx Asthma: Yes Hx Cancer: No - UTERINE FIBROIDS Hx Gastrointestinal Problems: Yes - Cholecystecomy Hx Neurological Problems: Yes - Lock Jaw Review of Systems All Other Systems: negative except mentioned in HPI Physical Exam Vital Signs Date Time Temp Pulse Resp B/P (MAP) Pulse Ox O2 Delivery O2 Flow Rate FiO2 09/04/17 11:41 97.3 86 18 132/85 96 Room Air Sp02 EP Interpretation: reviewed, normal General Appearance: no apparent distress, alert, GCS 15, non-toxic Head: normocephalic, atraumatic Eyes: bilateral eye normal inspection, bilateral eye PERRL ENT: hearing grossly normal, normal voice Neck: full range of motion Respiratory: chest non-tender, lungs clear, normal breath sounds, speaking full sentences Cardiovascular #1: regular rate, rhythm, normal capillary refill Musculoskeletal: back normal, normal range of motion, no calf tenderness, swelling - moderate swelling to the distal aspect and toes of feet bilaterally, currently in short leg posterior splints bilaterally with the elisa bandages loose and sliding. good capillary refill. pain does not appear to be out of proportion to exam, swelling primarily to the distal feet. , other - pt. ambulating on splints with a walker. Neurologic: alert, oriented x3, responsive, motor strength/tone normal, sensory intact, speech normal, grossly normal Skin: normal color, no rash, warm/dry, well hydrated Medical Decision Making PA Attestation Dr. Johnson is my supervising Physician whom patient management has been discussed with. Diagnostic Impression: Primary Impression: History of ankle fracture Additional Impression: Bilateral ankle pain Qualified Codes: M25.571 - Pain in right ankle and joints of right foot; M25.572 - Pain in left ankle and joints of left foot ER Course 52-year-old female presents to the emergency department complaining of 10 out of 10 in severity bilateral ankle pain x3 days. Patient states that on the she was seen at [facility] ED and dx'd with bilateral ankle fractures and had bilateral posterior leg splint placed. Patient states that she believes the splints were place very poorly, and she has noticed significant swelling to the feet bilaterally and reports progressive numbness and tingling localized in both heels. denies skin color changes of the toes, or gross loss of sensation. She reports at the splints are very uncomfortable. She states that she is supposed follow up with desktop publishing specialist she's been unable to make an appointment so she came to the emergency department. She states that she was prescribed [place] 10mg which had not been doing anything. Patient denies change in character of her pain since onset of fractures she does report increase in swelling. Denies loss of gross motor movements of the extremities, incontinence of bowel or bladder. Ddx considered but are not limited to Fracture, dislocation, contusion, Sprain/ Strain/Spasm, neurovascular compromise, compartment syndrome just to name a few. Vital signs: are WNL, pt. is afebrile H&PE are most consistent with musculoskeletal injury will perform imaging to r/ o fractures/dislocations. ORDERS: - X-ray's not warranted as pt. does not report new trauma. ED INTERVENTIONS: - Percocet PO -Toradol IM -Right short leg posterior Splint applied by medical supply technician. Pt. remains neurovascularly intact. -Left short leg posterior Splint applied by medical supply technician. Pt. remains neurovascularly intact. Pt Education: encouraged elevation of LE's as much as possible to reduce swelling, in addition to taking anti-inflammatories. dw pt. that she will still need desktop publishing specialist follow up. d/w pt. that although she has a walker to assist her ambulation, I recommend renting a wheel chair and staying off her feet as much as possible to avoid continued swelling. DISCHARGE: At this time pt. is stable for d/c to home. Will provide printed patient care instructions, and any necessary prescriptions. Care plan and follow up instructions have been discussed with the patient prior to discharge. Last Vital Signs Date Time Temp Pulse Resp B/P (MAP) Pulse Ox O2 Delivery O2 Flow Rate FiO2 09/04/17 11:41 97.3 86 18 132/85 96 Room Air Disposition: HOME, SELF-CARE Condition: Stable Scripts Naproxen* (NAPROXEN*) 500 Mg Tablet.dr 500 MG ORAL TWICE A DAY for 10 Days, #20 TAB Prov: Joana Luke 09/04/17 Patient Instructions: Ankle Fracture Additional Instructions: Take previously prescribed medications as directed. 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 --Please review list of primary care clinics, if you do not already have a primary care provider Return sooner to ED if new symptoms occur, or current symptoms become worse. - Please note that this Emergency Department Report was dictated using [employer] staff member technology software, occasionally this can lead to erroneous entry secondary to interpretation by the dictation equipment. Joana Luke Sep 04, 2017 12:41
[2017-09-04] MEDS ORDERED: NAPROXEN500 M1 ORAL (12:44)
[2017-09-04 12:54] VITALS: BP 144/71
[2017-09-04 14:05] VITALS: BP 137/86
== END 2017-09-04 14:27 | disposition home or self-care (01) ==
LOC: EMR 12:40
DX: M25.571 Pain in right ankle and joints of right foot (principal); M25.572 Pain in left ankle and joints of left foot; J45.909 Unspecified asthma, uncomplicated; Z98.51 Tubal ligation status; Z90.49 Acquired absence of other specified parts of digestive tract; Z88.0 Allergy status to penicillin; Z88.6 Allergy status to analgesic agent
CPT/HCPCS: 29515; 99284

== ENCOUNTER 2018-09-10 14:35 | Emergency (ER) | payer MEDICAID ==
[~2018-09-10] VITALS: Ht 172.7 cm; Wt 90.7 kg
[~2018-09-10 14:35] MED LIST changes: +NAPROXEN500 M1 ORAL
[2018-09-10 14:45] VITALS: BP 116/72
--- NOTE | 2018-09-10 14:47 | NUR ---
ED Nurse Note: Pt came in from home c/o lower back pain started a month ago when pt was diagnosed with UTI, was prescribed Bactrim but the pain didn't go away and has been having pain since then. Also c/o L sided chest discomfort x 2 week. Pt AA&ox4, gcs=15, skin warm and dry, resp even and unlabored, -n/v/d, ambulates w/ steady gait, will continue to monitor.
--- NOTE | 2018-09-10 15:12 | Emergency Room Report ---
History of Present Illness General Chief Complaint: Pain Source: Patient (Joana Luke) Present Illness HPI 53 YO Female presents to the ED c/o 05/18 in severity dysuria, x 4 weeks. 1 month ago dx with UTI and completed a course of bactrim with no relief of her symptoms. now with left sided flank/pain. denies hematuria, or urinary frequency. Pt. also c/o left sided chest discomfort as well. denies palpitations. N/V/F/C. pt. denies abdominal tenderness. Denies CP, Palpitations , LOC, AMS, dizziness, Changes in Vision, Sensation, paresthesias, or a sudden severe headache. Denies SOB or pain at rest. Pt. reports pain exacerbated when attempting to sit up from lying position such as getting out of bed. (Joana Luke) Allergies: Coded Allergies: PENICILLINS (Verified Allergy, Severe, HIVES, 08/22/12) KETOROLAC (Verified Allergy, Mild, 09/10/18) IBUPROFEN (Verified Allergy, Unknown, 08/24/16) TRAMADOL (Verified Allergy, Unknown, 08/24/16) Uncoded Allergies: PENICILLIN (Allergy, Unknown, 10/11/15) Patient History Past Medical History: see triage record Past Surgical History: none Pertinent Family History: none Now: No Reviewed Nursing Documentation: PMH: Agreed; PSxH: Agreed (Joana Luke) Nursing Documentation-PMH Past Medical History: No History, Except For Hx Cardiac Problems: Yes - CHF, States during 12 years ago. Tubal ligation, Hx Asthma: Yes Hx Cancer: No - UTERINE FIBROIDS Hx Gastrointestinal Problems: Yes - Cholecystecomy Hx Neurological Problems: Yes - Lock Jaw (Joana Luke) Review of Systems All Other Systems: negative except mentioned in HPI (Joana Luke) Physical Exam Vital Signs Date Time Temp Pulse Resp B/P (MAP) Pulse Ox O2 Delivery O2 Flow Rate FiO2 09/10/18 14:44 98.2 101 20 116/72 98 Room Air Sp02 EP Interpretation: reviewed, normal General Appearance: no apparent distress, alert, GCS 15, non-toxic Head: normocephalic, atraumatic Eyes: bilateral eye normal inspection, bilateral eye PERRL ENT: hearing grossly normal, normal voice Neck: full range of motion Respiratory: chest non-tender, lungs clear, normal breath sounds, no respiratory distress, no accessory muscle use, no wheezing, speaking full sentences Cardiovascular #1: regular rate, rhythm, no edema, normal capillary refill Gastrointestinal: normal bowel sounds, non tender, soft Rectal: deferred Genitourinary: normal inspection, CVA tenderness (L) Musculoskeletal: back normal, gait/station normal, normal range of motion, non- tender Neurologic: alert, oriented x3, responsive, motor strength/tone normal, sensory intact, speech normal, grossly normal Psychiatric: judgement/insight normal Skin: normal color, no rash, warm/dry, well hydrated Lymphatic: no adenopathy (Joana Luke) Medical Decision Making PA Attestation Dr. Johnson is my supervising Physician whom patient management has been discussed with. (Joana Luke) Diagnostic Impression: Primary Impression: UTI (urinary tract infection) Qualified Codes: N30.01 - Acute cystitis with hematuria ER Course 53 YO Female presents to the ED c/o 05/18 in severity dysuria, x 4 weeks. 1 month ago dx with UTI and completed a course of bactrim with no relief of her symptoms. now with left sided flank/pain. denies hematuria, or urinary frequency. Pt. also c/o left sided chest discomfort as well. denies palpitations. N/V/F/C. pt. denies abdominal tenderness. Denies CP, Palpitations , LOC, AMS, dizziness, Changes in Vision, Sensation, paresthesias, or a sudden severe headache. Denies SOB or pain at rest. Pt. reports pain exacerbated when attempting to sit up from lying position such as getting out of bed. Ddx considered but are not limited to UTi , Pyelo, STI, Stone, Cystitis Vital signs: are WNL, pt. is afebrile H&PE are most consistent with UTI ORDERS: - UA labs are attached - Blood present, elevated WBC's and leukocytes. -Troponin: WNL ED INTERVENTIONS: -Morphine IV -1 Liter NS -Rocephin IV DISCHARGE: At this time pt. is stable for d/c to home. Will provide printed patient care instructions, and any necessary prescriptions. Care plan and follow up instructions have been discussed with the patient prior to discharge. Labs Test 09/10/18 15:18 White Blood Count 7.9 K/UL (4.8-10.8) Red Blood Count 4.31 M/UL (4.20-5.40) Hemoglobin 12.8 G/DL (12.0-16.0) Hematocrit 38.9 % (37.0-47.0) Mean Corpuscular Volume 90 FL (80-99) Mean Corpuscular Hemoglobin 29.8 PG (27.0-31.0) Mean Corpuscular Hemoglobin Concent 33.0 G/DL (32.0-36.0) Red Cell Distribution Width 12.3 % (11.6-14.8) Platelet Count 195 K/UL (150-450) Mean Platelet Volume 7.2 FL (6.5-10.1) Neutrophils (%) (Auto) 68.2 % (45.0-75.0) Lymphocytes (%) (Auto) 24.9 % (20.0-45.0) Monocytes (%) (Auto) 5.6 % (1.0-10.0) Eosinophils (%) (Auto) 0.8 % (0.0-3.0) Basophils (%) (Auto) 0.6 % (0.0-2.0) Urine Color Pale yellow Urine Appearance Clear Urine pH 6 (4.5-8.0) Urine Specific [place] 1.020 (1.005-1.035) Urine Protein Negative (NEGATIVE) Urine Glucose (UA) Negative (NEGATIVE) Urine Ketones Negative (NEGATIVE) Urine Blood 3+ (NEGATIVE) Urine Nitrite Negative (NEGATIVE) Urine Bilirubin Negative (NEGATIVE) Urine Urobilinogen Normal MG/DL (0.0-1.0) Urine Leukocyte Esterase 2+ (NEGATIVE) Urine RBC 2-4 /HPF (0 - 2) Urine WBC 5-10 /HPF (0 - 2) Urine Squamous Epithelial Cells Few /LPF (NONE/OCC) Urine Bacteria Few /HPF (NONE) Sodium Level 141 MMOL/L (136-145) Potassium Level 3.2 MMOL/L (3.5-5.1) Chloride Level 109 MMOL/L (98-107) Carbon Dioxide Level 22 MMOL/L (21-32) Anion Gap 10 mmol/L (5-15) Blood Urea Nitrogen 17 mg/dL (7-18) Creatinine 0.9 MG/DL (0.55-1.30) Estimat Glomerular Filtration Rate > 60 mL/min (>60) Glucose Level 105 MG/DL (74-106) Calcium Level 8.9 MG/DL (8.5-10.1) Total Bilirubin 0.2 MG/DL (0.2-1.0) Aspartate Amino Transf (AST/SGOT) 9 U/L (15-37) Alanine Aminotransferase (ALT/SGPT) 19 U/L (12-78) Alkaline Phosphatase 58 U/L (46-116) Total Creatine Kinase 53 U/L (26-308) Troponin I 0.003 ng/mL (0.000-0.056) Total Protein 7.7 G/DL (6.4-8.2) Albumin 3.4 G/DL (3.4-5.0) Globulin 4.3 g/dL Albumin/Globulin Ratio 0.8 (1.0-2.7) (oJana Luke) EKG Diagnostic Results EP Interpretation: Dr. Johnson Rate: normal - 85 BPM Rhythm: NSR ST Segments: no acute changes ASA given to the pt in ED: No PA Scribe Text This Interpretation was scribed by JAM Luke. (Joana Luke) Chest X-Ray Diagnostic Results Chest X-Ray Diagnostic Results : Chest X-Ray Ordered: Yes # of Views/Limited/Complete: 1 View Indication: Chest Pain EP Interpretation: Yes PA Xray: Interpretation reviewed, by supervising MD, and agrees with findings. Interpretation: no consolidation, no effusion, no pneumothorax, no acute cardiopulmonary disease Impression: No acute disease Electronically Signed by: Joana Luke PA-C (Joana Luke) Chest X-Ray Diagnostic Results : Electronically Signed by: Nash A documentation of Xray reviewed by me and is accurate, Teofilo Johnson MD (Teofilo Johnson MD) Last Vital Signs Date Time Temp Pulse Resp B/P (MAP) Pulse Ox O2 Delivery O2 Flow Rate FiO2 09/10/18 14:44 98.2 101 20 116/72 98 Room Air (Joana Luke) Disposition: HOME, SELF-CARE Condition: Stable Scripts Cephalexin* (KEFLEX*) 500 Mg Capsule 500 MG ORAL EVERY 12 HOURS for 7 Days, #14 CAP 0 Refills Prov: Joana Luke 09/10/18 Acetaminophen With Codeine (T#3) (TYLENOL #3 TAB*) Y Tab 1 TAB ORAL Q8HR PRN for For Pain, #5 TAB Prov: Joana Luke 09/10/18 Patient Instructions: Urinary Tract Infection, [id number] Additional Instructions: Take medications as directed. Follow up with a Primary Care Provider in 3-5 days, even if your symptoms have resolved. UROLOGY REFERRAL NEEDED IF SYMPTOMS RETURN. Return sooner to ED if new symptoms occur, or current symptoms become worse. Do not drink alcohol, drive, or operate heavy machinery while taking Tylenol # 3 as this may cause drowsiness. - Please note that this Emergency Department Report was dictated using [employer] dispatcher technology software, occasionally this can lead to erroneous entry secondary to interpretation by the dictation equipment. Joana Luke Sep 10, 2018 15:11 Teofilo Johnson MD Sep 11, 2018 05:57
[2018-09-10 15:38] LABS: BASOPHILS % (AUTO) 0.6 % (0.0-2.0); EOSINOPHILS % (AUTO) 0.8 % (0.0-3.0); HEMATOCRIT 38.9 % (37.0-47.0); HEMOGLOBIN 12.8 G/DL (12.0-16.0); LYMPHOCYTES % (AUTO) 24.9 % (20.0-45.0); MEAN CORPUSCULAR VOLUME 90 FL (80-99); MONOCYTES % (AUTO) 5.6 % (1.0-10.0); NEUTROPHILS % (AUTO) 68.2 % (45.0-75.0); PLATELET COUNT 195 K/UL (150-450); RED BLOOD COUNT 4.31 M/UL (4.20-5.40); RED CELL DISTRIBUTION WIDTH 12.3 % (11.6-14.8); WHITE BLOOD COUNT 7.9 K/UL (4.8-10.8)
[2018-09-10 15:42] LABS: APPEARANCE,URINE CLEAR; BILIRUBIN, URINE NEGATIVE (NEGATIVE); COLOR,URINE PALE YELLOW; GLUCOSE, URINE (UA) NEGATIVE (NEGATIVE); KETONES,URINE NEGATIVE (NEGATIVE); LEUKOCYTE ESTERASE ,URINE 2+ (NEGATIVE); NITRITE,URINE NEGATIVE (NEGATIVE); PH,URINE 6 (4.5-8.0); PROTEIN,URINE NEGATIVE (NEGATIVE); UROBILINOGEN,URINE NORMAL MG/DL (0.0-1.0)
[2018-09-10 15:45] VITALS: BP 113/72
[2018-09-10 16:02] LABS: ANION GAP 10 mmol/L (5-15); BLOOD UREA NITROGEN 17 mg/dL (7-18); CALCIUM 8.9 MG/DL (8.5-10.1); CARBON DIOXIDE 22 MMOL/L (21-32); CHLORIDE 109 MMOL/L (98-107); CREATININE 0.9 MG/DL (0.55-1.30); POTASSIUM 3.2 MMOL/L (3.5-5.1); SODIUM 141 MMOL/L (136-145)
[2018-09-10 16:07] LABS: ALANINE AMINOTRANSFERASE 19 U/L (12-78); ALBUMIN 3.4 G/DL (3.4-5.0); ALBUMIN/GLOBULIN RATIO 0.8 (1.0-2.7); ALKALINE PHOSPHATASE 58 U/L (46-116); ASPARTATE AMINO TRANSFERASE 9 U/L (15-37); BILIRUBIN,TOTAL 0.2 MG/DL (0.2-1.0); CREATINE KINASE 53 U/L (26-308)
[2018-09-10 16:45] VITALS: BP 114/72
--- NOTE | 2018-09-10 17:14 | NUR ---
ED Nurse Note: Pa notified regarding pt's lab K 3.2 and pain.
[2018-09-10] MEDS ORDERED: Morphine Sulfate 4mg/ml Inj (IV/IM USE ONLY) IVP ONE (17:45)
[2018-09-10] MEDS ORDERED: cefTRIAXone 1 GM in NS 55 ML IVPB ONE (18:15)
[2018-09-10] MEDS ORDERED: CEPHALEXIN500 MG ORAL (19:08)
[2018-09-10] MEDS ORDERED: ACETAMINOPHEN-1 EAC1 ORAL (19:08)
[2018-09-10 19:13] VITALS: BP 109/98
--- NOTE | 2018-09-10 19:13 | NUR ---
ED Nurse Note: Pt reports pain is better with medication, Pt discharge instruction provided w/ prescription, id band removed, pt education done via discussion and handout, pt verbalized understanding and agrees with plan, pt advised to follow up with pcp regarding pt's condition, pt advised to return to ed if s/s worsen or new s/s develop.
--- NOTE | 2018-09-12 15:48 | Diagnostic Imaging Report ---
Indication: Abdominal pain Technique: Continuous helical transaxial imaging of the abdomen and pelvis was obtained from the lung bases to the pubic symphysis. No intravenous contrast was administered. Coronal 2-D reformats were also obtained. Automatic Exposure Control was utilized. Total Dose length Product (DLP): [address] Dose Index Volume (CTDIvol): 17.25 mGy Comparison: none Findings: Lung bases are clear. Tiny hypodensity in the liver noted. Cholecystectomy clips demonstrated. No hydronephrosis or renal stones identified. Minimal calcification of aorta demonstrated. Appendix is normal. There is a right ovarian cyst 2.5 cm noted. Few diverticula demonstrated in the colon. No evidence of diverticulitis. No free air or free fluid identified. IMPRESSION: No acute findings. Right adnexal cyst probably ovarian. Multiple incidental findings as above [facility] has communicated the preliminary results to the Emergency Department. Their findings are largely concordant with this report. The CT scanner at [facility] is accredited by the [employer] and the scans are performed using dose optimization techniques as appropriate to a performed exam including Automatic Exposure control.
--- NOTE | 2018-09-12 15:49 | Diagnostic Imaging Report ---
Indication: Chest pain Comparison: 08/24/2016 A single view chest radiograph was obtained. Findings: Cardiomediastinal appearance is within normal limits for age. The lungs are clear. Pulmonary vascularity is appropriate. The diaphragmatic contour is smooth and costophrenic angles are sharp. No pleural effusions are identified. The bones are unremarkable. Impression: No acute findings
== END 2018-09-10 19:13 | disposition home or self-care (01) ==
LOC: EMR 15:48
DX: N30.01 Acute cystitis with hematuria (principal); J45.909 Unspecified asthma, uncomplicated; Z88.0 Allergy status to penicillin; Z88.6 Allergy status to analgesic agent; Z90.49 Acquired absence of other specified parts of digestive tract
CPT/HCPCS: 36415; 71045; 74176; 80053; 81003; 82550; 84484; 85025; 93005; 96361; 96365; 96375; 99284; J0696; J2270; J8499

== ENCOUNTER 2019-04-01 13:48 | Emergency (ER) | payer MEDICAID ==
[~2019-04-01] VITALS: Ht 172.7 cm; Wt 97.5 kg
[~2019-04-01 13:48] MED LIST changes: +CEPHALEXIN500 MG ORAL
--- NOTE | 2019-04-01 14:09 | Emergency Room Report ---
History of Present Illness General Chief Complaint: Skin Rash/Abscess Source: Patient Present Illness HPI 53-year-old female with no significant past medical history here complaining of pruritic rash on her ankles and arms. Patient reports that she was outside and noticed multiple insect bites paretic with minimal pain upon scratching. Denies fever and chills, anaphylaxis, shortness of breath, chest pain, palpitation, abdominal pain nausea vomiting. Denies recent travel. Denies any pus drainage from the lesions. Patient reports that she has some leftover antibiotics from her UTI diagnosis recently and does not recall the name however continue taking them for her rash. Denies any pain over the lesions at this time. Allergies: Coded Allergies: PENICILLINS (Verified Allergy, Severe, HIVES, 08/22/12) KETOROLAC (Verified Allergy, Mild, 09/10/18) IBUPROFEN (Verified Allergy, Unknown, 08/24/16) TRAMADOL (Verified Allergy, Unknown, 08/24/16) Uncoded Allergies: PENICILLIN (Allergy, Unknown, 10/11/15) Patient History Past Medical History: see triage record Past Surgical History: unable to obtain Pertinent Family History: none Last Menstrual Period: menopause Now: No Immunizations: UTD Reviewed Nursing Documentation: PMH: Agreed; PSxH: Agreed Nursing Documentation-PMH Past Medical History: No History, Except For Hx Cardiac Problems: Yes - CHF, States during 12 years ago. Tubal ligation, Hx Asthma: Yes Hx Cancer: No - UTERINE FIBROIDS Hx Gastrointestinal Problems: Yes - Cholecystecomy Hx Neurological Problems: Yes - Lock Jaw Review of Systems All Other Systems: negative except mentioned in HPI Physical Exam Vital Signs Date Time Temp Pulse Resp B/P (MAP) Pulse Ox O2 Delivery O2 Flow Rate FiO2 04/01/19 13:52 97.5 87 18 122/87 (99) 99 Room Air Sp02 EP Interpretation: reviewed, normal General Appearance: normal inspection, well appearing, no apparent distress, alert, GCS 15 Head: normocephalic, atraumatic Eyes: bilateral eye normal inspection, bilateral eye PERRL ENT: normal ENT inspection, hearing grossly normal, normal pharynx, no angioedema Neck: normal inspection, full range of motion, supple, thyroid normal, no meningismus Respiratory: normal inspection, chest non-tender, lungs clear, no rhonchi, no retraction, no wheezing Cardiovascular #1: normal inspection, normal peripheral pulses, regular rate, rhythm, no edema, no murmur Cardiovascular #2: 2+ radial (R), 2+ radial (L) Gastrointestinal: normal inspection, soft, no mass Rectal: deferred Genitourinary: no CVA tenderness Musculoskeletal: normal inspection, back normal, digits/nails normal, gait/ station normal Neurologic: normal inspection, alert, oriented x3 Psychiatric: normal inspection, judgement/insight normal, memory normal Skin: other - Multiple noninfected non-cellulitic insect bites on both ankles and arms Lymphatic: normal inspection, no adenopathy Medical Decision Making PA Attestation All my diagnosis and treatment plans were reviewed ad discussed with my supervising physician Dr. Lehman Diagnostic Impression: Primary Impression: Insect bite ER Course 53-year-old female with no significant past medical history here complaining of pruritic rash on her ankles and arms. Patient reports that she was outside and noticed multiple insect bites paretic with minimal pain upon scratching. Denies fever and chills, anaphylaxis, shortness of breath, chest pain, palpitation, abdominal pain nausea vomiting. Denies recent travel. Denies any pus drainage from the lesions. Patient reports that she has some leftover antibiotics from her UTI diagnosis recently and does not recall the name however continue taking them for her rash. Denies any pain over the lesions at this time. Ddx considered but are not limited to: Eczema, scabies, lice, noninfected insect bite, cellulitis Vital signs: are WNL, pt. is afebrile H&PE are most consistent with: Noninfected insect bite ORDERS: Prednisone, hydrocortisone cream ED INTERVENTIONS: None required at this time. DISCHARGE: At this time pt. is stable for d/c to home. Will provide printed patient care instructions, and any necessary prescriptions. Care plan and follow up instructions have been discussed with the patient prior to discharge. No antibiotics needed follow-up with her primary care provider if fever and chills and worsening symptoms return to the emergency room avoid scratching the affected area as it may cause infection Last Vital Signs Date Time Temp Pulse Resp B/P (MAP) Pulse Ox O2 Delivery O2 Flow Rate FiO2 04/01/19 13:52 97.5 87 18 122/87 (99) 99 Room Air Disposition: HOME, SELF-CARE Condition: Stable Scripts Hydrocortisone/Aloe Vera 1%* (HYDROCORTISONE-ALOE 1% CREAM*) Y Cr 1 APPLIC TOPIC Q6H PRN for Itching, #30 GM Prov: Raj Moreira 04/01/19 Prednisone* (PREDNISONE*) 10 Mg Tablet 10 MG ORAL BID for 5 Days, #10 TAB 0 Refills Prov: Raj Moreira 04/01/19 Patient Instructions: Insect Bite, [id number] Additional Instructions: Avoid taking hot showers take medication as directed follow-up with your primary care provider at this time your insect bites are not infected avoid scratching to prevent further infection. Raj Moreira Apr 01, 2019 14:09
[2019-04-01] MEDS ORDERED: HYDROCORTISONE-30 GM TOPIC (14:10)
[2019-04-01] MEDS ORDERED: PREDNISONE10 MG ORAL (14:10)
--- NOTE | 2019-04-01 14:10 | NUR ---
ED Nurse Note:pt with skin rash unk cause. no other s/s
[2019-04-01 14:21] VITALS: BP 122/87
--- NOTE | 2019-04-01 14:21 | NUR ---
ER DISCHARGE NOTE: Patient is cleared to be discharged per ERMD, pt is aox4, on room air, with stable vital signs. pt was given dc and prescription instructions, pt was able to verbalize understanding, pt id band removed without complications. pt is able to ambulate with steady gait. pt took all belongings.
== END 2019-04-01 14:25 | disposition home or self-care (01) ==
LOC: EMR 14:10
DX: S90.562A Insect bite (nonvenomous), left ankle, initial encounter (principal); S90.561A Insect bite (nonvenomous), right ankle, initial encounter; S40.862A Insect bite (nonvenomous) of left upper arm, initial encounter; S40.861A Insect bite (nonvenomous) of right upper arm, initial encounter; W57.XXXA Bitten or stung by nonvenomous insect and other nonvenomous arthropods, initial encounter; Y92.9 Unspecified place or not applicable; J45.909 Unspecified asthma, uncomplicated; I50.9 Heart failure, unspecified; Z90.49 Acquired absence of other specified parts of digestive tract; Z88.0 Allergy status to penicillin; Z88.6 Allergy status to analgesic agent; Z88.5 Allergy status to narcotic agent
CPT/HCPCS: 99282

== ENCOUNTER 2019-04-11 10:25 | Emergency (ER) | payer MEDICAID ==
[~2019-04-11] VITALS: Ht 172.7 cm; Wt 97.5 kg
[~2019-04-11 10:25] MED LIST changes: +HYDROCORTISONE-30 GM TOPIC; +PREDNISONE10 MG ORAL
--- NOTE | 2019-04-11 10:29 | NUR ---
ED Nurse Note: pt not present in the waiting room when called
[2019-04-11 10:45] VITALS: BP 136/71
--- NOTE | 2019-04-11 10:46 | NUR ---
ED Nurse Note: Patient walked in to ER accompanied by family member due to abdominal pain and mild vaginal spotting. Patient stated she has having difficulty urinating. Has history of fibrod cyst that was diagnosed last Aug 2018. Alert and oriented x 4, verbally responsive. Breathing even and unlabored. No signs of respiratory distress noted.
--- NOTE | 2019-04-11 10:57 | Emergency Room Report ---
History of Present Illness General Chief Complaint: Abdominal Pain Source: Patient Present Illness HPI 53 year old female history of fibroids, presents with pelvic pain, she states that she started to have cramping secondary to Depo-Provera wearing off, she states she wasn't able to get another shot 2/2 insurance issues, [place] any fevers chills, chest pain shortness of breath, she only endorses pelvic cramping that comes and goes.-like pain, severity mild to moderate, aggravated by not having Depo-Provera alleviated with Depo-Provera she started to notice spotting, started 1 week ago Allergies: Coded Allergies: PENICILLINS (Verified Allergy, Severe, HIVES, 08/22/12) TRAMADOL (Verified Allergy, Unknown, 08/24/16) Uncoded Allergies: PENICILLIN (Allergy, Unknown, 10/11/15) Patient History Past Medical History: see triage record Last Menstrual Period: aug 2018 Now: No Reviewed Nursing Documentation: PMH: Agreed; PSxH: Agreed Nursing Documentation-PMH Hx Cardiac Problems: Yes - CHF, States during 12 years ago. Tubal ligation, Hx Asthma: Yes Hx Cancer: No - UTERINE FIBROIDS Hx Gastrointestinal Problems: Yes - Cholecystecomy Hx Neurological Problems: Yes - Lock Jaw Review of Systems Constitutional: Denies: chills, fever Eye: Denies: blurred vision, double vision ENT: Denies: throat pain, nasal discharge Respiratory: Denies: cough, shortness of breath Cardiovascular: Denies: chest pain, palpitations Gastrointestinal: Reports: abdominal pain; Denies: diarrhea, nausea, vomiting Genitourinary: Reports: pain, vag bleed/dc; Denies: dysuria Musculoskeletal: Denies: back pain, muscle pain Skin: Denies: rash, lesions Neurological: Denies: headache, focal weakness Hematologic/Lymphatic: Denies: easy bleeding, easy bruising All Other Systems: negative except mentioned in HPI Physical Exam Vital Signs Date Time Temp Pulse Resp B/P (MAP) Pulse Ox O2 Delivery O2 Flow Rate FiO2 04/11/19 10:32 98.8 69 16 143/95 (111) 96 Room Air Sp02 EP Interpretation: reviewed, normal General Appearance: well appearing, no apparent distress, alert Head: normocephalic, atraumatic Eyes: bilateral eye PERRL, bilateral eye EOMI ENT: uvula midline, moist mucus membranes Neck: supple, thyroid normal, supple/symm/no masses Respiratory: lungs clear, no respiratory distress, no retraction, no accessory muscle use Cardiovascular #1: normal peripheral pulses, regular rate, rhythm, no edema, no gallop, no murmur Gastrointestinal: non tender, soft, no guarding, no rebound Genitourinary: other - 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, pelvic exam unremarkable, no cmt, no adnexal tenderness, no discharge, no blood in vault Musculoskeletal: normal inspection Neurologic: alert, oriented x3 Psychiatric: mood/affect normal Skin: no rash, warm/dry Medical Decision Making Diagnostic Impression: Primary Impression: Pelvic pain Additional Impression: Post-menopausal bleeding ER Course Patient with abdominal cramping possibly secondary to Depo-Provera wearing off, patient with soft abdomen, in no acute distress however endorses subjective pain , no acute emergencies at this time, will provide patient with pain medication, patient counseled to follow-up with CERTIFIED TECHNICIAN SPECIALIST, low suspicion for diverticulitis low suspicion for appendicitis low suspicion for ovarian torsion, patient given pain medications, disposition home Cures report was ran, will provide patient with a short-term prescription for pain medication Last Vital Signs Date Time Temp Pulse Resp B/P (MAP) Pulse Ox O2 Delivery O2 Flow Rate FiO2 04/11/19 10:32 98.8 69 16 143/95 (111) 96 Room Air Disposition: HOME, SELF-CARE Condition: Stable Scripts Naproxen* (NAPROSYN*) 250 Mg Tablet 250 MG ORAL BID PRN for For Pain, #20 TAB 0 Refills Prov: Bradford Phillip MD 04/11/19 Hydrocodone Bit/Acetaminophen 5-325* (NORCO 5-325*) 1 Each Tablet 1 TAB ORAL Q6H PRN for For Pain, #10 TAB 0 Refills Prov: Bradford Phillip MD 04/11/19 Referrals: [facility] Patient Instructions: Abdominal Pain, Adult, Dysfunctional Uterine Bleeding, Postmenopausal Bleeding, [id number], Uterine Fibroids Additional Instructions: The patient was provided with discharge instructions, notified to follow-up with a primary care doctor and or specialist in the next 24-48 hours, and to return to the ED if they have worsening of their symptoms. Please note that this report is being documented using [employer] technology. This can lead to erroneous entry secondary to incorrect interpretation by the dictating instrument. FOLLOW-UP WITH OBGYN IN 24-48HOURS Bradford Phillip MD Apr 11, 2019 10:57
[2019-04-11] MEDS ORDERED: Ketorolac 60mg Inj IM ONE (11:00)
[2019-04-11] MEDS ORDERED: NORCO 5-325 TA1 EACH ORAL (11:00)
[2019-04-11] MEDS ORDERED: oxyCODONE HCL/Acetaminophen 5/325mg ORAL ONE (11:00)
[2019-04-11] MEDS ORDERED: NAPROXEN250 MG ORAL (11:00)
[2019-04-11 11:15] VITALS: BP 136/71
--- NOTE | 2019-04-11 11:15 | NUR ---
ED Nurse Note: Pt cleared by health care Provider for discharge. DC instructions/prescription was given and explained to pt and verbalized understanding of teachings. All medical deviecs such as ID band removed. Pt is AAO x4, ambulatory and left with all belongings.
== END 2019-04-11 11:15 | disposition home or self-care (01) ==
LOC: EMR 11:13
DX: R10.2 Pelvic and perineal pain (principal); N95.0 Postmenopausal bleeding; Z88.0 Allergy status to penicillin; Z88.8 Allergy status to other drugs, medicaments and biological substances; I50.9 Heart failure, unspecified; Z90.49 Acquired absence of other specified parts of digestive tract
CPT/HCPCS: 96372; 99283

== ENCOUNTER 2019-07-03 02:13 | Emergency (ER) | payer MEDICAID ==
[~2019-07-03] VITALS: Ht 175.3 cm; Wt 95.7 kg
[~2019-07-03 02:13] MED LIST changes: +NAPROXEN250 MG ORAL
--- NOTE | 2019-07-03 02:26 | NUR ---
ED Nurse Note: Patient presents with complaints of incessant vaginal bleeding post depo shot 2 weeks ago.
[2019-07-03 02:36] VITALS: BP 132/84
--- NOTE | 2019-07-03 02:37 | Emergency Room Report ---
History of Present Illness General Chief Complaint: Female Urogenital Problems Source: Patient Present Illness HPI Is a 54-year-old female who said that she has a history of fibroid. She has several CT scan here that did not mention any fibroids. She presents with chief complaint of pelvic cramping and vaginal bleeding. She states she been bleeding for the last 2 weeks ever since she got double shot a month ago. She says she getting Deprol shot to shrink the fibroid. Complaining of a sharp cramping pain. 9 out of 10. No fever chills but no nausea no vomiting. She says she is from [place] but now here for court. Her [employer] told her to come into the ER if she still having pain and bleeding. No radiation of the pain. Allergies: Coded Allergies: PENICILLINS (Verified Allergy, Severe, HIVES, 08/22/12) TRAMADOL (Verified Allergy, Unknown, 08/24/16) Uncoded Allergies: PENICILLIN (Allergy, Unknown, 10/11/15) Patient History Past Medical History: see triage record, old chart reviewed Past Surgical History: none Pertinent Family History: none Social History: Denies: smoking Last Menstrual Period: current Now: No : 14 Para: 3 Immunizations: other Reviewed Nursing Documentation: PMH: Agreed; PSxH: Agreed Nursing Documentation-PMH Hx Cardiac Problems: Yes - CHF, States during 12 years ago. Tubal ligation, Hx Asthma: Yes Hx Cancer: No - UTERINE FIBROIDS Hx Gastrointestinal Problems: Yes - Cholecystecomy Hx Neurological Problems: Yes - Lock Jaw Review of Systems Eye: Denies: eye pain, blurred vision ENT: Denies: ear pain, nose congestion, throat swelling Respiratory: Denies: cough, shortness of breath Cardiovascular: Denies: chest pain, palpitations Gastrointestinal: Reports: abdominal pain; Denies: diarrhea, nausea, vomiting Genitourinary: Reports: vag bleed/dc Musculoskeletal: Denies: back pain, joint pain Skin: Denies: rash Neurological: Denies: headache, numbness Endocrine: Denies: increased thirst, increased urine Hematologic/Lymphatic: Denies: easy bruising All Other Systems: negative except mentioned in HPI Physical Exam Vital Signs Date Time Temp Pulse Resp B/P (MAP) Pulse Ox O2 Delivery O2 Flow Rate FiO2 07/03/19 02:18 98.2 78 18 132/84 (100) 96 Room Air Vitals normal Sp02 EP Interpretation: reviewed, normal General Appearance: well appearing, no apparent distress, alert Head: normocephalic, atraumatic Eyes: bilateral eye PERRL, bilateral eye EOMI ENT: hearing grossly normal, normal pharynx Neck: full range of motion, supple, no meningismus Respiratory: chest non-tender, lungs clear, normal breath sounds Cardiovascular #1: regular rate, rhythm, no murmur Gastrointestinal: normal bowel sounds, non tender, no mass, no organomegaly, no bruit, non-distended Musculoskeletal: back normal, gait/station normal, normal range of motion Psychiatric: mood/affect normal Medical Decision Making Diagnostic Impression: Primary Impression: Dysfunctional uterine bleeding Additional Impressions: Cocaine abuse PCP abuse UTI (urinary tract infection) Qualified Codes: N30.00 - Acute cystitis without hematuria ER Course Patient presents with vaginal bleeding. Hemoglobin is stable. No change from previous years. She is positive for cocaine and PCP. Urine may have a urinary tract infection. She says she has fibroid but CT scan here have never mentioned any fibroids. We will go ahead and treated. Will discharge home. Last Vital Signs Date Time Temp Pulse Resp B/P (MAP) Pulse Ox O2 Delivery O2 Flow Rate FiO2 07/03/19 02:18 98.2 78 18 132/84 (100) 96 Room Air Status: improved Disposition: HOME, SELF-CARE Condition: Stable Scripts Ibuprofen* (MOTRIN*) 600 Mg Tablet 600 MG ORAL THREE TIMES A DAY, #30 TAB 0 Refills Prov: Rg Gutierrez MD 07/03/19 Additional Instructions: Stop using drugs. Follow-up with your doctor in 7 days. Return if symptoms worsen. Rg Gutierrez MD Jul 03, 2019 02:37
[2019-07-03] MEDS ORDERED: Ketorolac 30mg Inj IV ONE (02:45)
[2019-07-03 02:54] LABS: APPEARANCE,URINE CLEAR; BILIRUBIN, URINE NEGATIVE (NEGATIVE); GLUCOSE, URINE (UA) NEGATIVE (NEGATIVE); KETONES,URINE NEGATIVE (NEGATIVE); LEUKOCYTE ESTERASE ,URINE 2+ (NEGATIVE); NITRITE,URINE NEGATIVE (NEGATIVE); PH,URINE 5 (4.5-8.0); PROTEIN,URINE 2+ (NEGATIVE); UROBILINOGEN,URINE 1 MG/DL (0.0-1.0)
[2019-07-03 02:59] LABS: COLOR,URINE YELLOW
[2019-07-03 03:02] LABS: BASOPHILS % (AUTO) 0.7 % (0.0-2.0); EOSINOPHILS % (AUTO) 2.7 % (0.0-3.0); HEMATOCRIT 38.2 % (37.0-47.0); HEMOGLOBIN 12.7 G/DL (12.0-16.0); LYMPHOCYTES % (AUTO) 25.4 % (20.0-45.0); MEAN CORPUSCULAR VOLUME 87 FL (80-99); MONOCYTES % (AUTO) 7.6 % (1.0-10.0); NEUTROPHILS % (AUTO) 63.6 % (45.0-75.0); PLATELET COUNT 195 K/UL (150-450); RED BLOOD COUNT 4.39 M/UL (4.20-5.40); RED CELL DISTRIBUTION WIDTH 12.9 % (11.6-14.8)
[2019-07-03 03:08] LABS: ANION GAP 11 mmol/L (5-15); BLOOD UREA NITROGEN 22 mg/dL (7-18); CALCIUM 9.1 MG/DL (8.5-10.1); CARBON DIOXIDE 23 MMOL/L (21-32); CHLORIDE 114 MMOL/L (98-107); CREATININE 0.9 MG/DL (0.55-1.30); POTASSIUM 3.6 MMOL/L (3.5-5.1); SODIUM 148 MMOL/L (136-145)
[2019-07-03] MEDS ORDERED: IBUPROFEN600 MG ORAL (03:26)
[2019-07-03] MEDS ORDERED: MACROBID100 MG ORAL (03:28)
--- NOTE | 2019-07-03 03:35 | NUR ---
ED Nurse Note: Patient cleared for discharge, with no s/s of acute distress. Patient ambulatory with steady gait, A&Ox4 and has no complaints at this time. ID band removed, IV removed. Patient departed with all belongings to home.
[2019-07-03 03:37] VITALS: BP 132/84
== END 2019-07-03 03:37 | disposition home or self-care (01) ==
LOC: EMR 02:44
DX: N30.00 Acute cystitis without hematuria (principal); N93.9 Abnormal uterine and vaginal bleeding, unspecified; F14.10 Cocaine abuse, uncomplicated; F16.10 Hallucinogen abuse, uncomplicated; J45.909 Unspecified asthma, uncomplicated; Z90.49 Acquired absence of other specified parts of digestive tract; Z98.51 Tubal ligation status; I50.9 Heart failure, unspecified; Z88.0 Allergy status to penicillin; Z88.6 Allergy status to analgesic agent
CPT/HCPCS: 36415; 80048; 80307; 81001; 81025; 85025; 96374; J1885; Z7502; 99284